=== PATIENT | female | born 1995 | race Asian ===

== ENCOUNTER → 2016-11-18 | Outpatient (CLI) | payer OTHER ==
--- NOTE | 2016-11-18 17:30 | CPEEG ---
[f rep st] ELECTROENCEPHALOGRAM DATE OF STUDY: 11/18/2016 INTERPRETATION: This EEG recording continues to show generalized atypical spike and wave discharges and generalized polyspike and wave discharges. 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 During the EEG, there were no clinical events noted. REPORT: This EEG contains 9 Hz alpha activity of the posterior head regions. At rest, the patient had rare activation of generalized atypical spike and wave discharges. There was some additional activation with photic stimulation at 33 Hz of a generalized polyspike and wave discharge (photoparoxysmal response). In addition, the patient had some activation of generalized spike and wave discharge during hyperventilation. The patient became drowsy and fell asleep during the study. There was increased activation of generalized atypical spike and wave discharges and generalized poly spike and wave discharges during drowsiness and sleep. No clinical events or seizures were recorded during this study. /[id number]/MODL MTDD
== END ==
LOC: FCPNEURO 09:41
PROVIDERS: ATTEND Psychiatry & Neurology Neurology
DX: G40.309 Generalized idiopathic epilepsy and epileptic syndromes, not intractable, without status epilepticus (principal)

== ENCOUNTER 2018-07-27 05:54 | Emergency (ER) | payer OTHER ==
[2018-07-27 06:01] VITALS: BP 128/82
[2018-07-27] MEDS ORDERED: LORAZEPAM 1 MG PREPACK#4 BTL TAKEHOME ONE (06:16)
[2018-07-27] MEDS ORDERED: NITROFURANTOIN 100MG PREPACK#2 BTL TAKEHOME ONE (06:16)
--- NOTE | 2018-07-27 06:17 | EDPHY ---
H & P Stated Complaint: frequent urination, lack of sleep Time Seen by Provider: 07/27/18 06:08 HPI/ROS: Chief Complaint: Urinary frequency HPI: 22-year-old woman presenting with urinary urgency and frequency with started about midnight. Patient had a transvaginal ultrasound yesterday morning to confirm placement of her International Units D. She had been doing well all during the day but started developing symptoms were night. Because of her frequent urination she has not been able to sleep all night. She is concerned because she has a history of epilepsy which is triggered by sleep deprivation. She is presenting for evaluation of possible UTI and requesting medications to help her sleep. She has been taking her usual antiseizure medications. Last seizure was in April. No fevers or chills. No abdominal pain. No back pain. No abnormal vaginal discharge or bleeding. No nausea or vomiting. ROS: 10 systems were reviewed and were negative except those elements noted in the HPI. PMH: Epilepsy Social History: No smoking, no alcohol, no recreational drug use Family History: non-contributory Physical Exam: Gen: Awake, Alert, No Distress HEENT: Nose: no rhinorrhea Eyes: PERRLA, EOMI Mouth: Moist mucosa Neck: Supple, no JVD Chest: nontender, lungs clear to auscultation Heart: S1, S2 normal, no murmur Abd: Soft, non-tender, no guarding Back: no CVA tenderness, no midline tenderness Ext: no edema, non-tender Skin: no rash Neuro: CN II-XII intact, Sensation grossly intact, Strength 5/5 in bilateral upper and lower extremities - Personal History LMP (Females 10-55): IUD In Place Current Tetanus Diphtheria and Acellular Pertussis (TDAP): Yes - Medical/Surgical History Hx Asthma: No Hx Chronic Respiratory Disease: No Hx Diabetes: No Hx Cardiac Disease: No Hx Renal Disease: No Hx Cirrhosis: No Hx Alcoholism: No Hx HIV/AIDS: No Hx Splenectomy or Spleen Trauma: No Other PMH: epilepsy - Social History Smoking Status: Never smoked Constitutional: Initial Vital Signs Temperature (C) 36.6 C 07/27/18 05:58 Heart Rate 63 07/27/18 05:58 Respiratory Rate 20 07/27/18 05:58 Blood Pressure 128/82 H 07/27/18 05:58 O2 Sat (%) 99 07/27/18 05:58 O2 Delivery Mode Room Air Allergies/Adverse Reactions: No Known Allergies Allergy (Unverified 07/27/18 05:57) Home Medications: Medication Instructions Recorded Diamox 07/27/18 Lamotrigine 07/27/18 Nitrofurantoin Monohyd/M-Cryst 100 mg PO BID #8 capsule 07/27/18 [Macrobid 100 mg Capsule] Medical Decision Making ED Course/Re-evaluation: 22-year-old woman with symptoms consistent with a urinary tract infection. She has a history of epilepsy and has not been able to sleep because of her urinary symptoms. She is requesting a mild sedative for this. I think that this is appropriate. I will give her Ativan to go home with. This will have the added benefit of reducing her seizure risk. I will start her on Macrobid and give her a prescription. She will follow up with primary care physician or return here for any concerns. Departure - Departure Disposition: Home, Routine, Self-Care Clinical Impression: Urinary tract infection Condition: Good Instructions: Urinary Tract Infection in Women (ED) Additional Instructions: Please take your full course of antibiotics. You may take the Ativan as needed to help you sleep. Follow up with primary care physician in 2-3 days if symptoms are not improving. Referrals: NONE *PRIMARY CARE P,. [Primary Care Provider] - As per Instructions Prescriptions: Nitrofurantoin Monohyd/M-Cryst [Macrobid 100 mg Capsule] 100 mg PO BID #8 capsule
== END 2018-07-27 06:35 | disposition home or self-care (01) ==
DX: N39.0 Urinary tract infection, site not specified (principal); Z97.5 Presence of (intrauterine) contraceptive device